=== PATIENT | female | born 1945 | race Caucasian/White ===

== ENCOUNTER → 2019-05-09 07:07 | Outpatient (REF) | payer MEDICARE, SELFPAY | LOC: ANHLAB 07:07 | PROVIDERS: PCP Family Medicine; Visit Provider Nurse Practitioner | DX: C44.01 Basal cell carcinoma of skin of lip (principal); C44.519 Basal cell carcinoma of skin of other part of trunk | CPT/HCPCS: 88305; 88331 ==